=== PATIENT | male | born 1995 | race Caucasian/White ===

== ENCOUNTER 2021-01-31 10:05 | Observation (INO) ==
--- NOTE | 2021-01-28 10:11 | Anesthesiology Consultation ---
Date of Service January 28, 2021 Assessment & Plan (1) Encounter for pre-operative examination: Chart Review Chart Review: Acceptable Risk for Surgery (pending preop Covid testing ) and Patient NOT seen in Pre Admission Testing Pt initially scheduled for procedure 01/17/21- preoperatively - pt found to have chest congestion (preop Covid testing negative but patient was not tested for flu) - case postponed for two weeks- rescheduled to 01/31/21 Per nursing assessment 01/28/2021, patient denies any travel. Wears mask in public. No known Covid infection in the past 90 days. Patient is vaccinated for Covid. No known Covid positive contacts or Covid related symptoms. Preop Covid testing scheduled 01/29/21= will await results History Surgery Operation Date: 01/31/21 13:05 Proposed Procedures p Laparoscopic Cholecystectomy - Heraclio Rey, Height/Weight Height: 6 ft 2 in Weight: 63.503 kg Allergies Allergy/AdvReac Type Severity Reaction Status Date / Time Penicillins Allergy Intermediate Hives Verified 01/28/21 09:03 Medications Home Medications Medication Instructions Recorded Confirmed Last Taken No Known Home Medications 01/28/21 01/28/21 Unknown Past Medical History Medical History History of COVID-19 loss of taste and smell, slight cough. lethargic. February 2020. no hospitalization. MVP (mitral valve prolapse) no moshgiach. no current problems. Past Family History Family History Other No family history of adverse response to anesthesia Past Surgical History Surgical History H/O wisdom tooth extraction Social History Smoking Status: Current every day smoker tobacco type: e-cigarettes Do You Dip or Chew Tobacco: No Hx Alcohol Use: Yes Alcohol type: beer alcohol intake frequency: a few times a week Hx Substance Use: Yes substance use type: marijuana Last Used Substance: Days (ago) Last Used Substance Other:: 01/08/21 (advised by nursing to avoid 3+ days prior to surgery)
[~2021-01-31 10:05] MED LIST: LR 15ML/HR IV SCH
[2021-01-31] MEDS ORDERED: CIPROFLOXACIN 400MG / 200ML D5W IV ONE (11:14)
[2021-01-31] MEDS ORDERED: ONDANSETRON INJ 2 MG/ML 2 ML VIAL IV PRN ×2 (11:15→12:49)
[2021-01-31] MEDS ORDERED: ATROPINE SULFATE 0.1 MG/ML 10ML SYR IV PRN (11:15)
[2021-01-31] MEDS ORDERED: fentaNYL citrate 100 MCG/2 ML VIAL IV PRN (11:15)
[2021-01-31] MEDS ORDERED: ePHEDrine sulfate 50 MG/ML AMP IV PRN (11:15)
[2021-01-31] MEDS ORDERED: fentaNYL citrate 100 MCG/2 ML VIAL ONE ×2 (11:16→13:01)
[2021-01-31] MEDS ORDERED: MIDAZOLAM HCL 1 MG/ML 2ML VIAL ONE (11:16)
--- NOTE | 2021-01-31 11:20 | History & Physical Report ---
Date of Service January 31, 2021 Assessment & Plan (1) Gallbladder sludge: Plan: We discussed his options as well as the procedure in detail. We have discussed the risks which include bleeding, infection, injury to another organ such as bile duct or liver or bowel, bile leaks, DVT, PE, MD, CVA etc. Following our discussion answered his questions. We will proceed today with laparoscopic cholecystectomy. (2) Cholecystitis: History of Present Illness Primary Care Provider: NO PCP 26-year-old with a several month history of postprandial upper abdominal pain. Work-up has revealed gallbladder sludge as well as gallbladder wall thickening. He does have associated nausea. He is here today for cholecystectomy. There is been no changes in his health status since I seen him in the office. Allergies Allergy/AdvReac Type Severity Reaction Status Date / Time Penicillins Allergy Intermediate Hives Verified 01/31/21 10:32 Home Medications Medication Instructions Recorded Confirmed Type hydrocodone 5 mg-acetaminophen 325 1 - 2 tab PO .Q4-6h PRN #15 tab 01/31/21 Rx mg tablet MDD 6 tabs Past Med/Surg History Medical History Flu dec 2020 History of COVID-19 loss of taste and smell, slight cough. lethargic. February 2020. no hospitalization. MVP (mitral valve prolapse) no domestic travel consultant. no current problems. Surgical History H/O wisdom tooth extraction Family History Other No family history of adverse response to anesthesia Social History (Updated 12/31/20 @ 10:00 by Tari Giraldo RN) Smoking Status: Current every day smoker Tobacco Type: E-cigarettes / Vaping Second Hand Exposure: No; Do You Dip or Chew Tobacco: No; Tobacco Cessation Education Requested by Patient: No Hx Alcohol Use: Yes Alcohol type: beer Hx Substance Use: Yes Non-Prescribed Medications: Marijuana Last Used Substance: Days (ago) Last Used Substance Other:: 01/08/21 (advised by nursing to avoid 3+ days prior to surgery) Preferred Language: Georgian Communication Ability: Effective 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 Beliefs That Will Affect Care: None marital status: Single Current Living Situation: Significant Other current occupational status: student Other Information That Helps Us Care for You: No Feels Safe at Home: Yes Safety Concerns: Feels Safe At This Time Assistive Devices: Glasses Review of Systems All systems reviewed & are unremarkable except as noted in HPI & below Physical Exam Constitutional: WD/WN, vitals as above no acute distress and not ill appearing Eyes: PERRL, conjunctivae normal, anicteric sclerae EOM intact bilaterally ENMT: external ear and nose normal, oropharynx normal Ears: no hearing impairment Neck: trachea midline, no thyromegaly Respiratory: normal respiratory effort; no respiratory distress and does not use accessory muscles Cardiovascular: Rate/Rhythm: regular rate and regular rhythm Gastrointestinal (Abdomen): normal bowel sounds, soft, nontender, no hepatosplenomegaly Skin: no rashes, warm and dry Psychiatric: Orientation: alert, oriented x 3 and cooperative Results & Data ([facility]) Vital Signs (Past 12 Hours) Vital Signs Temp Pulse Resp BP Pulse Ox 01/31/21 10:34 36.5 C 60 22 117/67 100
[2021-01-31] MEDS ORDERED: EPINEPHrine INJ 1 MG/ML AMP ONE (11:41)
[2021-01-31] MEDS ORDERED: BUPIVACAINE 0.5 % 5 MG/1 ML MPF 30ML VIAL ONE (11:41)
[2021-01-31] MEDS ORDERED: CIPROFLOXACIN / D5W 400 MG/200 ML BAG IV SCH (12:00)
[2021-01-31] MEDS ORDERED: GLYCOPYRROLATE 0.2 MG/ML VIAL ONE ×3 (12:14→12:42)
[2021-01-31] MEDS ORDERED: diphenhydrAMINE 50 MG/ML VIAL ONE (12:19)
[2021-01-31] MEDS ORDERED: LIDOCAINE 2% 2 ML VIAL/AMP(20MG/ML) INFIL ONE (12:19)
[2021-01-31] MEDS ORDERED: DEXAMETHASONE SOD INJ 4 MG/ML VIAL ONE (12:19)
[2021-01-31] MEDS ORDERED: ROCURONIUM BROMIDE 10 MG/ML 5 ML VIAL IV ONE (12:19)
[2021-01-31] MEDS ORDERED: ONDANSETRON INJ 2 MG/ML 2 ML VIAL ONE (12:19)
[2021-01-31] MEDS ORDERED: PROPOFOL IV EMULSION 10 MG/ML 20 ML VIAL IV ONE (12:19)
[2021-01-31] MEDS ORDERED: NEOSTIGMINE METHYLSULFATE 1 MG/ML 10ML VIAL ONE (12:19)
[2021-01-31] MEDS ORDERED: MoRPHine SULFATE 2 MG/ML CARP IV PRN (12:49)
[2021-01-31] MEDS ORDERED: HYDROCODONE/ACETAMOPHEN 5/325MG TAB PO PRN ×2 (12:49)
[2021-01-31] MEDS ORDERED: MoRPHine SULFATE 4 MG/ML 1 ML CARP\\VIAL IV PRN (12:49)
[2021-01-31] MEDS ORDERED: SODIUM CHLORIDE 0.9% 1000ML 1,000 ML IV SCH (13:00)
--- NOTE | 2021-01-31 13:01 | Operative Report ---
PG Post Operative Report Pre & Post Diagnosis Operation Date: 01/31/21 11:45 Pre-Op Diagnosis: Cholecystitis, Gallbladder Sludge Post-Op Diagnosis: Cholecystitis, Gallbladder Sludge, umbilical hernia I identified the patient and participated in the time-out.: Yes Procedure Operation Date: 01/31/21 11:45 Actual Procedures p Laparoscopic Cholecystectomy, repair of umbilical hernia(Not Applicable) - Heraclio Rey DO Surgeon Heraclio Rey DO Vehicle Leasing And Rental Manager donita Wright Estimated Blood Loss 5 Findings Consistent with Post-Op Diagnosis Specimens gallbladder Description of Procedure After informed consent was obtained the patient was taken to the operating room and placed in the supine position. After successful intubation the abdomen was sterilely prepped and draped in usual fashion. A periumbilical incision was made with an 11 blade scalpel and carried down through the soft tissue using electrocautery. We immediately encountered a small umbilical hernia. I extended the fascial defect of the hernia about half a centimeter superiorly and took down the hernia sac. 2 #0 Vicryl stay sutures were placed in the fascial edges of the defect. A finger sweep was performed and a 12 mm Sanchez trocar was placed. The abdomen was insufflated to 18 mmHg. The laparoscope was inserted and the abdomen was examined in 360. No gross abnormalities were identified. A subxiphoid 5 mm port and 2 right upper quadrant 5 mm ports were placed under direct vision. The patient was placed in a reverse Trendelenburg position and slightly airplaned to the left. The gallbladder was grasped and elevated superiorly and laterally. A [place] dissector was used to take down adhesions around the neck of the gallbladder. The cystic duct was identified and skeletonized. It was clipped twice proximally and once distally and transected using a laparoscopic scissor. In similar fashion the cystic artery was identified and skeletonized clipped and divided. The gallbladder was removed from the gallbladder fossa with electrocautery. It was placed into an Endo Catch bag. Thorough irrigation was performed. At the end of the procedure there was adequate hemostasis and no evidence of any bile leaks. A final look around the abdomen showed no other abnormalities. The gallbladder and trochars were all removed and the abdomen was desufflated. The fascial defect of the hernia was closed using 0 Vicryl in simple erupted fashion. All the wounds were irrigated and closed using 4-0 Monocryl. Marcaine was injected around them for postoperative analgesia and skin glue used as a dressing. The patient was awakened, extubated and transferred to recovery in stable condition. My physician's therapy assistant was present throughout the entire case... helped with prepping the patient. With exposure for trocar placement, as well as retracted the gallbladder throughout the case and also assisted with wound closure and dressing placement. I attest to the content of the Intraoperative Record and any orders documented therein. Any exceptions are noted below.
[2021-01-31] MEDS ORDERED: LORazepam 2 MG/4 ML VIAL ONE (13:07)
[2021-01-31] MEDS ORDERED: KETOROLAC 30 MG/ML VIAL ONE (13:17)
[2021-01-31] MEDS ORDERED: HYDROmorphone INJ 2 MG/ML SYR/VIAL ONE (13:33)
[2021-01-31] MEDS: HYDROmorphone INJ 1 MG/ML SYRINGE IV PRN ×3 (13:34→13:48)
[2021-01-31] MEDS ORDERED: ACETAMINOPHEN 1000 MG/100 ML IV IV ONE (14:03)
[2021-01-31] MEDS ORDERED: ACETAMINOPHEN 1,000 MG/100 ML VIAL IV STA (14:03)
--- NOTE | 2021-01-31 15:12 | Anesthesiology Progress Note ---
Date of Service January 31, 2021 Anesthesia Post Procedure Vital Signs Vital Signs: Temp Pulse Pulse Resp BP BP Pulse Ox 01/31/21 14:35 96 H 18 145/90 H 98 01/31/21 14:25 82 18 131/88 100 01/31/21 14:15 71 12 130/79 99 01/31/21 14:05 67 16 130/82 99 01/31/21 13:55 69 16 146/91 H 99 01/31/21 13:45 81 20 122/100 98 01/31/21 13:35 87 14 136/83 100 01/31/21 13:25 86 16 114/99 98 01/31/21 13:15 63 14 135/86 98 01/31/21 13:08 36.1 C L 89 18 117/76 98 01/31/21 10:34 36.5 C 60 22 117/67 100 Pain Intensity Abdomen: Pain Intensity: 4 Transfer of Care Handoff Completed per policy Notes Mental Status: alert / awake / arousable and participated in evaluation Patient Amnestic to Procedure: Yes Nausea / Vomiting: adequately controlled Pain: adequately controlled Airway Patency, RR, SpO2: stable & adequate BP & HR: stable & adequate Hydration State: stable & adequate Anesthetic Complications: no major complications apparent and Pt Satisfied with anesthetic care
[2021-01-31] MEDS ORDERED: PROMETHAZINE HCL 6.25 MG in SODIUM CHLORIDE 0.9% 50 ML IV STA (18:50)
[2021-01-31] MEDS ORDERED: METOCLOPRAMIDE HCL INJ 5 MG/ML 2 ML VIAL IV STA (18:54)
[2021-01-31] MEDS ORDERED: METOCLOPRAMIDE HCL INJ 5 MG/ML 2 ML VIAL ONE (18:55)
[2021-01-31] MEDS ORDERED: oxyCODONE HCL IR 5 MG TAB (IMMEDIATE RELEASE) PO PRN (19:59)
[2021-01-31] MEDS: LACTATED RINGER'S 1,000 ML IV SCH (20:49)
[2021-01-31] MEDS: ACETAMINOPHEN 1,000 MG/100 ML VIAL IV SCH (21:53)
[2021-02-01] MEDS: MoRPHine SULFATE 4 MG/ML 1 ML CARP\\VIAL IV PRN ×2 (01:09→06:31)
[2021-02-01] MEDS: ACETAMINOPHEN 1,000 MG/100 ML VIAL IV SCH ×2 (06:00→14:01)
--- NOTE | 2021-02-01 06:12 | Communication Note ---
Date of Service: February 01, 2021 I was called by RN that patient was having difficulty voiding throughout the night. Patient notes that he has been able to void only small amounts thro ughout the night and felt that he had to strain in order to void. Nurse that she BladderScan the patient for 750 cc and requested straight cath. Did perform straight cath and obtained approximately 950 cc of urine. She also reported the patient had testicular swelling. I went upstairs and visited with the patient and he was noted to have significant testicular swelling on the right-hand side. I did not appreciate any masses. The right testicle was somewhat painful to palpation. The patient notes that with this pain he gets intermittent nausea. Because of the testicular swelling and pain I will check an ultrasound of the scrotum/testicles for further evaluation.
[2021-02-01 07:01] LABS: Basophils # (auto) 0.01 K/uL (0-0.2); Basophils % (auto) 0.1 %; Eosinophils # (auto) 0.03 K/uL (0-0.5); Eosinophils % (auto) 0.3 %; Hematocrit (blood only) 44.1 % (42-52); Hemoglobin 15.4 g/dL (14.0-18.0); Immature Granulocytes # (auto) 0.01 K/uL (0.00-0.02); Immature Granulocytes % (auto) 0.1 %; Lymphocytes # (auto) 1.24 K/uL (1.2-3.4); Lymphocytes % (auto) 10.6 %; Mean Corpuscular Hemoglobin 30.7 pg (25-34); Mean Corpuscular Volume 87.8 fL (80-100); Mean Platelet Volume 10.6 fL (7.4-10.4); Monocytes # (auto) 1.14 K/uL (0.11-0.59); Monocytes % (auto) 9.7 %; Neutrophils # (auto) 9.28 K/uL (1.4-6.5); Neutrophils % (auto) 79.2 %; Platelet Count 194 K/uL (130-400); RDW Coefficient of Variation 12.7 % (11.5-14.5); RDW Standard Deviation 40.4 fL (36.4-46.3); Red Blood Count 5.02 M/uL (4.7-6.1); White Blood Count 11.71 K/uL (4.8-10.8)
[2021-02-01 07:06] LABS: Mean Corpuscular Hgb Conc 34.9 g/dL (32-36)
[2021-02-01 07:25] LABS: Albumin Level 3.8 gm/dl (3.4-5.0); BUN Creatinine Ratio 11.7 (10-20); Calcium 9.3 mg/dl (8.5-10.1); Creatinine Clr Calc Pharmacy 134.3 ml/min; Est GFR (African American) 149.6 ml/min; Est GFR (Non-African American) 129.1 ml/min; Potassium 3.7 mmol/L (3.5-5.1)
[2021-02-01 07:27] LABS: Albumin Globulin Ratio 1.3 (0.9-2); Globulin 2.9 gm/dl (2.5-4.0); Total Protein 6.7 gm/dl (6.4-8.2)
--- NOTE | 2021-02-01 07:41 | Ultrasound Report ---
SCROTAL ULTRASOUND CLINICAL HISTORY: Scrotal swelling and pain status post cholecystectomy. COMPARISON STUDY: None. TECHNIQUE: Grayscale and color and duplex Doppler sonography of the scrotum was performed. FINDINGS: Right testis measures 3.7 x 2.5 x 2.8 cm and the left measures 4.6 x 2.3 x 2.7 cm. There is color flow within each testis. There is no testicular mass. No evidence for epididymitis. There is a large right hydrocele which contains internal echoes. In addition, echogenic foci with shadowing wit hin the right hemiscrotum are noted consistent with gas. IMPRESSION: 1. Normal sonographic appearance of the testes. 2. Large complex right hydrocele. In addition, gas within the right hemiscrotum which is likely relat ed to recent procedure. This could reflect gas dissecting within the soft tissues or the findings cou ld be related to underlying defect with communication with the peritoneal cavity. ACT 112: Negative or not required by law. Electronically signed by: Peter Ledesma M.D. 02/01/2021 7:39 AM
[2021-02-01] MEDS: LACTATED RINGER'S 1,000 ML IV SCH (08:00)
--- NOTE | 2021-02-01 09:04 | Surgery Progress Note ---
Date of Service February 01, 2021 Assessment & Plan (1) Gallbladder sludge: Plan: pod 1 doing much better US of scrotum reviewed. CO2 from laparoscopy + hydrocele ok for d/c. instructions given. Admission and Anticipated Discharge Date Admission Date: January 31, 2021 Subjective pt admitted last night post lap ulysses for pain/nausea control. feeling much better this AM. able to void. Physical Exam Physical Exam: alert. nad abd: soft. incisions look good. expected ttp. non-distended. scrotum with some swelling. Results & Data ([facility]) Vital Signs (Past 12 Hours) Vital Signs Temp Pulse Resp BP BP Pulse Ox 02/01/21 07:35 36.6 C 60 16 123/67 93 02/01/21 02:50 36.8 C 61 16 119/60 98 01/31/21 22:50 36.9 C 60 18 119/58 L 97 01/31/21 22:19 50 L 97 01/31/21 21:50 36.9 C 56 L 18 119/69 100 PG Care Time/CCT Total # of Minutes Spent Total Time Spent with Patient: Total time spent is greater than 50% in coordination of care (as documented) at patient's floor/unit and/or counseling patient: Coding Level of Care Code None Diagnoses Gallbladder sludge K82.8
--- NOTE | 2021-02-01 11:13 | Discharge Summary ---
Date of Service February 01, 2021 Admission HPI Per Admitting Provider 26-year-old with a several month history of postprandial upper abdominal pain. Work-up has revealed gallbladder sludge as well as gallbladder wall thickening. He does have associated nausea. He is here today for cholecystectomy. There is been no changes in his health status since I seen him in the office. Principal Diagnosis Cholecystitis Urinary retention Discharge Exam Constitutional WD/WN, vitals as above Gastrointestinal (Abdomen) Inspection/Auscultation: + abdominal surgical incision (clean, dry); abdomen not distended Percussion/Palpation: abdomen soft Discharge Data Allergies Allergy/AdvReac Type Severity Reaction Status Date / Time Penicillins Allergy Intermediate Hives Verified 01/31/21 10:32 Procedures Performed Operation Date: 01/31/21 11:45 Actual Procedures p Laparoscopic Cholecystectomy, repair of umbilical hernia(Not Applicable) - Heraclio Rey DO Ordered Studies 02/01/21 06:08 US scrotum/testicle Stat Hospital Course (1) Gallbladder sludge: 26 y/o male was taken to the operating room for elective laparoscopic cholecystectomy. He continued to require IV meds while in recovery for pain and nausea. He was transferred to the surgical floor for overnight observation. He also required straight cath x1 for urinary retention and had some scrotal swelling. Ultrasound showed right hydrocele as well as some gas in the tissues from recent procedure. In the morning he was able to advance diet, tolerate oral analgesics and void. He was stable for discharge home. Total Time Total Time Spent Total Time Spent (In Minutes): 15 Discharge Plan Discharge Items Patient Disposition: Home - Self-Care Reason For Visit: HELADIO Discharge Diagnosis: laparoscopic cholecystectomy Activity: As commented below Lifting: No more than 10 pounds Bathing Comment: can shower over skin glue tonight Non-emergency contact: Surgeon Call non-emergency contact if: you have any medication questions, your pain is not controlled, your temperature is above 101.5 and your wound has increased redness Follow-up/Referrals: Heraclio Rey DO [Surgeon] - (In 2 weeks as scheduled or call if you do not have an appt already) PCP,NO [Primary Care Provider] - Diet: Regular Addtl Attending Provider Instructions: Pending Studies at Discharge: No Stand-Alone Forms: Anesthesia/Sedation, Adult, [facility] Medications and DC Order Prescriptions: New hydrocodone-acetaminophen 5-325 mg tablet 1 - 2 tab PO .Q4-6h MDD 6 tabs PRN (Reason: pain, initial therapy) Qty: 15 RF: 0 Discharge Orders: Discharge Order (Routine); Ordered 02/01/21 Ordered By: Heraclio Sands/Other Patient Handouts: DVT Post Op Prevention Admission Data Admit Date/Time: 01/31/21 19:01 Attending Provider: Heraclio Rey Admit Provider: Heraclio Rey Primary Care Provider: PCP,NO Other Interventions: Discharge Summary Assessment (RN) Last Done: 02/01/21 10:31 Coding Level of Care Code D/C DAY MANAGEMENT <30 MINS Diagnoses Gallbladder sludge K82.8
== END 2021-02-01 12:15 | disposition home or self-care (01) ==
LOC: ASU 10:05 → 3N 10:05